=== PATIENT | female | born 1970 | race Caucasian/White ===

== ENCOUNTER 2016-07-30 18:48 | Inpatient (IN) | payer MEDICAID ==
[2016-07-30 19:04] VITALS: BP 139/80
[2016-07-30] MEDS ORDERED: Sodium Chloride 0.9% 1,000 ML IV ONE (19:18)
[2016-07-30] MEDS ORDERED: Morphine Sulfate 4 mg/mL 1mL Syr ONE (19:24)
--- NOTE | 2016-07-30 19:24 | ED Physician Chart ---
Chief Complaint/HPI - Patient Information Date Seen:: 07/30/16 Time Seen:: 19:19 Chief Complaint:: abd p History of Present Illness:: since 6 am today w epigastric pain and vomiting several times through day. last ate chicken last nt ..npo since. took a zofran at 4pm w some relief of nausea...but epigastric pain persists. no known bad food exposure. diarhea 1x nonbloody. no fever. had brief rt side back p earlier not now. no abd sx hx. s/p menopause x 6 mo. is a and not sexually active. no urine changes. no hx of gb dz or gastritis. has a migraine also. its her usual chronic IYER pain. she took a fiorcet last nt for IYER pain. was on abx w bactrim for sinus infection last week. her dad had his GB removed. Allergies:: Allergies Allergy/AdvReac Type Severity Reaction Status Date / Time prochlorperazine AdvReac Verified 07/30/16 19:03 [From Compazine] Vitals:: Vital Signs - 8 hr 07/30/16 07/30/16 19:04 19:07 Temp 100.8 F HR 89 RR 13 BP 139/80 139/80 O2 Sat % 97 Historian:: Patient, Family Member Review of Systems - Review of Systems General/Constitutional: No fever, No chills, No weight loss, No weakness, No diaphoresis, No edema, No loss of appetite Skin: No skin lesions, No rash, No bruising Head: No headache, No light-headedness Eyes: No loss of vision, No pain, No diplopia ENT: No earache, No nasal drainage, No sore throat, No tinnitus Neck: No neck pain, No swelling, No thyromegaly, No stiffness, No mass noted Cardio Vascular: No chest pain, No palpitations, No PND, No orthopnea, No edema Pulmonary: No SOB, No cough, No sputum, No wheezing GI: Nausea, Vomiting, Diarrhea, Pain, No melena, No hematochezia, No constipation, No hematemesis G/U: No dysuria, No frequency, No hematuria Crew Team Member: No abnormal vaginal bleed Musculoskeletal: No bone or joint pain, No back pain, No muscle pain Endocrine: No polyuria, No polydipsia Psychiatric: No prior psych history, No depression, No anxiety, No suicidal ideation Hematopoietic: No bruising, No lymphadenopathy Allergic/Immuno: No urticaria, No angioedema Neurological: No syncope, No focal symptoms, No weakness, No paresthesia, No headache, No seizure, No dizziness, No confusion, No vertigo Past Medical History - Past Medical History Past Medical History: Other (migraine HAs) Family History: Other (gb sx(dad)) Social History: Non Smoker, No Alcohol Medication: Reviewed Family Medical History - Family Member Father Living Status: Still Living Hx Family Cancer: No Hx Family Coronary Artery Disease: No Hx Family Congestive Heart Failure: No Hx Family Diabetes: No Hx Family Seizures: No Hx Family AIDS: No Hx Family COPD: No Hx Family Psychiatric Problems: No Physical Exam - Physical Examination General/Constitutional: Awake, Well-developed, well-nourished, Alert, No distress, GCS 15, Non-toxic appearing, Ambulatory Other Gen/Cons comments:: wn.wh. alert. nontoxic. Head: Atraumatic Eyes: Lids, conjuctiva normal, PERRL, EOMI Skin: Nl inspection, No rash, No skin lesions, No ecchymosis, Well hydrated, No lymphadenopathy ENMT: External ears, nose nl, Nasal exam nl, Lips, teeth, gums nl Neck: Nontender, Full ROM w/o pain, No JVD, No nuchal rigidity, No bruit, No mass, No stridor Respiratory: Nl effort/Exclusion, Clear to Auscultation, No Wheeze/Rhonchi/Rales Cardio Vascular: RRR, No murmur, gallop, rubs, NL S1 S2 GI: No organomegaly, No hernia, Normal BS's, Nondistended, No mass/bruits, No McBurney tenderness Other GI comments:: mild tndr RUQ, ? pos guadarrama sign. no cva tndr no rebound. no abd mass. no aaa. : No CVA tenderness Extremities: No tenderness or effusion, Full ROM, normal strength in all extremities, No edema, Normal digits & nails Neuro/Psych: Alert/oriented, DTR's symmetric, Normal sensory exam, Normal motor strength, Judgement/insight normal, Mood normal, Normal gait, No focal deficits Misc: normal gait, Normal back, No paraspinal tenderness Labs/Radiology/EKG Results - Lab Results Results: Laboratory Tests 07/30/16 07/30/16 07/30/16 19:20 19:20 20:09 WBC 12.2 H RBC 4.71 Hgb 14.4 Hct 41.8 MCV 88.8 MCH 30.5 MCHC Differential 34.4 RDW 12.0 Plt Count 185 MPV 8.5 Neutrophils % 83.5 H Lymphocytes % 11.8 L Monocytes % 4.3 Eosinophils % 0.4 Basophils % 0.0 Sodium 135 L Potassium 3.6 Chloride 104 Carbon Dioxide 24.4 Anion Gap 10.2 BUN 13 Creatinine 0.7 Est GFR ( Amer) > 60.0 Est GFR (Non-Af Amer) > 60.0 BUN/Creatinine Ratio 18.6 Glucose 126 H Whole Bld Lactic Acid 1.20 Calcium 9.9 Total Bilirubin 0.4 AST 20 ALT 27 Alkaline Phosphatase 124 H Total Protein 7.7 Albumin 4.4 Globulin 3.3 Albumin/Globulin Ratio 1.3 Lipase 25 Urine Source Urine Color Urine Clarity Urine pH Ur Specific [place] Urine Protein Urine Glucose (UA) Urine Ketones Urine Blood Urine Nitrate Urine Bilirubin Urine Urobilinogen Ur Leukocyte Esterase Urine RBC Urine WBC Ur Epithelial Cells Urine Bacteria Urine Test 07/30/16 07/30/16 21:10 21:10 WBC RBC Hgb Hct MCV MCH MCHC Differential RDW Plt Count MPV Neutrophils % Lymphocytes % Monocytes % Eosinophils % Basophils % Sodium Potassium Chloride Carbon Dioxide Anion Gap BUN Creatinine Est GFR ( Amer) Est GFR (Non-Af Amer) BUN/Creatinine Ratio Glucose Whole Bld Lactic Acid Calcium Total Bilirubin AST ALT Alkaline Phosphatase Total Protein Albumin Globulin Albumin/Globulin Ratio Lipase Urine Source CLEAN C Urine Color YELLOW Urine Clarity CLEAR Urine pH 6.5 Ur Specific [place] 1.010 Urine Protein NEGATIVE Urine Glucose (UA) NEGATIVE Urine Ketones NEGATIVE Urine Blood NEGATIVE Urine Nitrate NEGATIVE Urine Bilirubin NEGATIVE Urine Urobilinogen 0.2 Ur Leukocyte Esterase NEGATIVE Urine RBC NONE SEEN Urine WBC NONE SEEN Ur Epithelial Cells NONE SEEN Urine Bacteria NONE SEEN Urine Test NEGATIVE - Radiology Results Results: us abd- pos gallstones and wall thick 0.7cm ED Septic Shock - . Is Septic Shock (SBP<90, OR Lactate>4 mmol\L) present?: No - <6hrs of presentation: Vital Signs: Vital Signs - 8 hr 07/30/16 07/30/16 19:04 19:07 Temp 100.8 F HR 89 RR 13 BP 139/80 139/80 O2 Sat % 97 Reassessment (Disposition) - Reassessment Reassessment:: pain persists on /off...additional dose of ms. given case dw dr tripathi (10;15p) he will admit. pt more comfortable now. iv zosyn ordered. Reassessment Condition:: Improved - Diagnosis Diagnosis:: 1 abdominal pain w n/v/d 3 gallstones and thick gb wall c/w acute cholecysteitis - Aftercare/Follow up Instructions Aftercare/Follow-Up Instructions:: Counseled pt & family regarding lab results/ diagnosis & need follow up - Patient Disposition Admitted to:: Med/Surg Condition at Disposition:: Improved
[2016-07-30 19:41] LABS: % MONOCYTES 4.3 % (2.0-10.0)
[2016-07-30 19:43] LABS: % EOSINOPHILS 0.4 % (0.0-5.0); % LYMPHOCYTES 11.8 % (20.0-50.0); % NEUTROPHILS 83.5 % (40.0-80.0); HEMATOCRIT 41.8 % (35.0-45.0); HEMOGLOBIN 14.4 gm/dL (11.7-15.5); MEAN CELL VOLUME 88.8 fl (81-100); MEAN CORPUSCULAR HEMOGLOBIN 30.5 pg (27.0-31.0); MEAN CORPUSCULAR HGB CONC 34.4 pg (28.0-36.0); MEAN PLATELET VOLUME 8.5 fl; NEUTROPHILE ABSOLUTE 10.3 Th/cmm (1.8-8.0); PLATELET COUNT 185 Th/cmm (150-400); RED BLOOD COUNT 4.71 Mil/cmm (3.80-5.10)
[2016-07-30 19:47] LABS: WHITE BLOOD COUNT 12.2 Th/cmm (4.8-10.8)
[2016-07-30 19:51] LABS: ALB/GLOB RATIO 1.3 (1.0-1.8); ALKALINE PHOSPHATASE 124 U/L (34-104); ANION GAP 10.2 (7.0-16.0); BILIRUBIN,TOTAL 0.4 mg/dL (0.3-1.0); BUN - UREA NITROGEN 13 mg/dL (7-25); BUN/CREATININE RATIO 18.6; CALCIUM SERUM 9.9 mg/dL (8.6-10.3); CARBON DIOXIDE 24.4 mEq/L (21.0-31.0); CHLORIDE 104 mEq/L (98-107); CREATININE - SERUM 0.7 mg/dL (0.6-1.2); GLUCOSE 126 mg/dL (70-105); LIPASE 25 U/L (11-82); POTASSIUM SERUM 3.6 mEq/L (3.5-5.1); SGOT 20 U/L (13-39); SGPT/ALT 27 U/L (7-52); SODIUM SERUM 135 mEq/L (136-145)
[2016-07-30 21:36] LABS: URINE BILIRUBIN NEGATIVE (NEGATIVE); URINE BLOOD NEGATIVE (NEGATIVE); URINE COLOR YELLOW; URINE GLUCOSE (UA) NEGATIVE (NEGATIVE); URINE KETONE NEGATIVE (NEGATIVE); URINE PH 6.5; URINE PROTEIN NEGATIVE (NEGATIVE); URINE UROBILINOGEN 0.2 E.U./dL (0.2 - 1.0)
[2016-07-30 21:37] LABS: URINE BACTERIA NONE SEEN /hpf (NONE SEEN); URINE EPITHELIAL CELLS NONE SEEN /lpf (FEW); URINE RBC NONE SEEN /hpf (0-5); URINE WBC NONE SEEN /hpf (0-5)
--- NOTE | 2016-07-30 22:44 | Admit Criteria Form ---
Admit Criteria Forms - Admit Criteria Diagnosis: ABDOMINAL PAIN Clinical Indications for Admission to Inpatient Care (Place 'X' for any and all applicable criteria): Admission is indicated for ANY ONE of the following(1)(2)(3)(4)(5): [X]I. Inpatient admission required rather than observation care (Also use Abdominal Pain: Observation Care, as appropriate) because of ANY ONE of the following: [ ]a) Severe pain requiring acute inpatient management [X]b) Identification of etiology/finding that requires inpatient care (eg, aortic dissection, free air) [ ]c) Absent bowel sounds with complete ileus(6) [ ]d) Suspected toxic megacolon [ ]e) Severe electrolyte abnormalities requiring inpatient care [ ]f) High fever or infection requiring inpatient admission as indicated by ANY ONE of following(7)(8): [ ] i) Appropriate outpatient or observational care antimicrobial treatment unavailable, not effective, or not feasible [ ] ii) Documented bacteremia [ ] iii) Temperature > 104.9 degrees F (oral) [ ] iv) T >103.1 F (oral) or < 96.8 F(rectal) that does not respond to all emergency treatment measures [ ]g) Signs of intestinal obstruction [B] [ ]h) Hemodynamic instability [ ]i) IV fluid to replace significant ongoing losses (greater than 3 L/m2 per day) (12)(13) [ ]j) Percutaneous or open drainage (eg, abscess, biliary tract ) procedures [ ]k) Parenteral nutrition regimen that must be implemented on inpatient basis [ ]l) Other condition,treatment or monitoring requiring inpatient admission. [ ]II. Peritoneal signs present [ ]III. Surgery needed that cannot be performed on an ambulatory basis. [ ]IV. Evaluation requires patient to not eat or drink for extended period ( eg, more than 24 hours). [ ]V. Contraindications and/or Inappropriate clinical situations for Observational Care in patients with abdominal pain, when ANY ONE of the following is required: [ ]a) Thorough evaluation is required to prevent catastrophic events due to delays in diagnosing (e.g.Mesenteric ischemia) 1,3 [ ]b) Patient with severe pathology or with chronic symptoms unlikely to improve in the ED stay (3) [ ]. General contraindications and/or Inappropriate clinical situations for Observational Care in patients with abdominal pain, when ANY ONE of the following is required: [ ]a) Prediction of prolongation of LOS based on ANY ONE of the following may be considered as a contraindication for observational care 2, 3, 4, 5, 6, 7, 8, 9, 10, 11 [ ]i) Age > 65 yrs. [ ]ii) Patient arriving by ambulance [ ]iii) Patient with high acuity [ ]iv) Patient requiring vital sign monitoring [ ]v) Patient on IV medication [ ]b) Systolic blood pressures 180mmHg 3,12 [ ]c) Patient with altered mental status including delirium and other alteration of consciousness, (3) [ ]d) Patient whose discharge disposition will be to a halfway home or rehabilitation home should not be managed in Emergency Department Observation Unit. CMS rule requires 3 days hospital stay before such placement.3,13 [ ]e) Patient with failure to thrive due to broad array of etiologies 3,16,17 [ ]f) Inability to ambulate 3,14 Extended stay beyond goal length of stay may be needed for(2)(3): [ ]a) Persistent abdominal pain with suspected intra-abdominal process [ ]b) Diagnosed condition requiring continued stay (e.g., pancreatitis, complicated diverticulitis) [ ]c) Surgery (e.g., colectomy) The original [facility] content created by [employer] has been revised. The portions of the content which have been revised are identified through the use of italic text or in bold, and [facility] has neither reviewed nor approved the modified material.All other unmodified content is copyright [facility]. Please see references footnoted in the original [facility] edition 2016 Admit Criteria Met?: Yes
[2016-07-30] MEDS ORDERED: Piperacillin Sodium/Tazobact 3.375 gm Vial IV ONE (23:39)
[2016-07-31] MEDS: D5-0.45NS 1,000 ML IV SCH (00:44)
[2016-07-31] MEDS ORDERED: Morphine Sulfate 4 mg/mL 1mL Syr ONE (05:20)
[2016-07-31] MEDS: Morphine Sulfate 4 mg/mL 1mL Syr IVP PRN ×2 (05:27→17:56)
--- NOTE | 2016-07-31 09:27 | Diagnostic Imaging Report ---
Portable chest x-ray History: Cough Allowing for portable technique the heart size is normal. No focal pulmonary parenchymal processes. No hilar or mediastinal abnormalities. Impression: No acute abnormalities.
[2016-07-31 10:16] LABS: % EOSINOPHILS 0.5 % (0.0-5.0); % LYMPHOCYTES 22.2 % (20.0-50.0); % MONOCYTES 5.8 % (2.0-10.0); % NEUTROPHILS 71.5 % (40.0-80.0); HEMOGLOBIN 13.9 gm/dL (11.7-15.5); MEAN CELL VOLUME 90.1 fl (81-100); MEAN CORPUSCULAR HEMOGLOBIN 30.5 pg (27.0-31.0); MEAN CORPUSCULAR HGB CONC 33.9 pg (28.0-36.0); MEAN PLATELET VOLUME 7.9 fl; NEUTROPHILE ABSOLUTE 5.5 Th/cmm (1.8-8.0); PLATELET COUNT 173 Th/cmm (150-400); RED BLOOD COUNT 4.55 Mil/cmm (3.80-5.10); RED CELL DISTRIBUTION WIDTH 12.3 % (11.5-20.0)
[2016-07-31 10:25] LABS: WHITE BLOOD COUNT 7.6 Th/cmm (4.8-10.8)
[2016-07-31 10:39] LABS: ANION GAP 5.7 (7.0-16.0); BUN - UREA NITROGEN 8 mg/dL (7-25); BUN/CREATININE RATIO 11.4; CALCIUM SERUM 9.6 mg/dL (8.6-10.3); CARBON DIOXIDE 27.9 mEq/L (21.0-31.0); CHLORIDE 108 mEq/L (98-107); CREATININE - SERUM 0.7 mg/dL (0.6-1.2); GLUCOSE 119 mg/dL (70-105); POTASSIUM SERUM 3.6 mEq/L (3.5-5.1); SODIUM SERUM 138 mEq/L (136-145)
[2016-07-31 10:53] LABS: INR 0.97 (0.5-1.4); PROTHROMBIN TIME (TEST) 10.1 SECONDS (9.5-11.5)
--- NOTE | 2016-07-31 11:07 | Diagnostic Imaging Report ---
Abdominal ultrasound HISTORY: Pain, vomiting The liver appears generous in size. No focal lesions. The exam the gallbladder demonstrates intraluminal echogenic densities with acoustic shadowing. Findings consistent with cholelithiasis. No biliary dilatation. No abnormalities are seen in the region of the pancreas. No focal renal lesions or hydronephrosis. No other retroperitoneal or intra-abdominal abnormalities. IMPRESSION: 1. Findings consistent with cholelithiasis
[2016-07-31] MEDS ORDERED: Meperidine 50 mg/mL 1mL Syr ONE (12:22)
[2016-07-31] MEDS ORDERED: Midazolam 1mg/ml 2 ml vial IV ONE (12:22)
--- NOTE | 2016-07-31 12:31 | Consultation ---
DATE OF CONSULTATION: 07/31/2016 REFERRING PHYSICIAN: Dr. Hernandez. REASON FOR CONSULTATION: Abdominal pain. Thank you for referring this patient to me. HISTORY OF PRESENT ILLNESS: This is a 46-year-old female who has been having pain in the right upper quadrant and nausea for the last few weeks. Today she complains of severe pain with nausea and multiple vomiting episodes. In the Emergency Room, the patient underwent studies including CBC with slight elevation of WBC at 12,200 with neutrophils of 85%. Liver function test and chemistries are within normal limits except for slightly elevated alkaline phosphatase at 124. She underwent ultrasound of the abdomen, which showed multiple gallstones with no biliary dilatation. PHYSICAL EXAMINATION: The patient is slightly obese, is alert and awake. No previous abdominal surgery. She does have a history of migraines for which she takes medications. Other examination reveals an umbilical hernia. IMPRESSION: 1. Calculus cholecystitis. 2. Umbilical hernia. 3. History of migraines headaches. PLAN: Laparoscopic versus open cholecystectomy and repair of umbilical hernia. Informed consent discussed with the patient and mother regarding possible complications. JOB# [id number]
[2016-07-31] MEDS ORDERED: Neostigmine 10mg/10mL Vial ONE (12:35)
[2016-07-31] MEDS ORDERED: Meperidine 25 mg/mL 1mL Syr IVP PRN (13:09)
[2016-07-31] MEDS ORDERED: Lactated Ringer 1,000 ML IV SCH (13:15)
[2016-07-31] MEDS ORDERED: Meperidine 25 mg/mL 1mL Syr ONE (14:02)
[2016-07-31] MEDS: metroNIDAZOLE 500mg/NS 100mL 500 MG in Premix Fluid 1 BAG IV SCH ×2 (16:23→21:46)
--- NOTE | 2016-07-31 18:18 | Operative Report ---
DATE OF SURGERY: 07/31/2016 PREOPERATIVE DIAGNOSES: 1. Acute calculous cholecystitis. 2. Umbilical hernia. POSTOPERATIVE DIAGNOSIS: 1. Gangrenous cholecystitis. 2. Umbilical hernia. OPERATION DONE: 1. Laparoscopic cholecystectomy. 2. Repair of umbilical hernia. SURGEON: Damion Ramirez M.D. ANESTHESIA: General. ANESTHESIOLOGIST: Casey Reilly M.D. INDICATIONS FOR SURGERY: The patient has sudden onset of abdominal pain, nausea and vomiting. Slight leukocytosis, liver function tests normal. Informed consent discussed with the patient and mother prior to surgery including complications that might include among other things, bleeding, infection, bile leak, adhesions, peritonitis, those related to circulation including DVT and pulmonary embolus and anesthesia. The patient and mother understands. OPERATIVE FINDINGS: Gangrenous Gallbladder. ESTIMATED BLOOD LOSS: 20 mL. DESCRIPTION OF PROCEDURE: The patient was given general anesthesia. The abdomen was prepped with ChloraPrep and draped in appropriate manner. A wide incision was made along the skin line below the umbilicus in preparation for the umbilical hernia repair. A Veress needle was inserted, insufflation of CO2 was carried out successfully. A 10 mm trocar was placed through the incision and the scope was introduced. There was good visualization of the abdominal cavity and a gallbladder was identified to be gangrenous and ____dark in color. Another 10 mm trocar was placed in upper abdomen at the midline and two 5 mm trocars were placed in the right flank. The operating table is elevated at the head and turned to the left side. The gallbladder was then aspirated with the trocar and decompressed. Cultures were taken. Fundus and infundibulum of the gallbladder was grasped and blunt dissection was carried out at the infundibulum easily exposing the cystic duct apparatus, then clipped 3 times distally, once proximally and divided. Cystic artery was next clipped and divided. Cautery dissection was carried out superiorly until the gallbladder was removed in Endobag with multiple gallstones. Following satisfactory hemostasis, Sang-Dyer was left in the ____ space because of the gangrene. The abdominal incision was closed to repair the umbilical hernia utilizing interrupted sutures of #1 Vicryl. This is to approximate the upper and lower part of the fascia. A 0.5% Marcaine was injected into the operative sites and incisions were closed with phyllis. The patient tolerated procedure well. JOB# [id number]
[2016-07-31] MEDS: Morphine Sulfate 2 mg/mL 1mL Syr IVP PRN (23:32)
[2016-08-01] MEDS: APAP 325mg/Butalbital 50mg/Caff 40mg Tab PO PRN ×3 (02:25→20:49)
[2016-08-01] MEDS: Morphine Sulfate 2 mg/mL 1mL Syr IVP PRN ×2 (02:45→11:09)
[2016-08-01] MEDS: metroNIDAZOLE 500mg/NS 100mL 500 MG in Premix Fluid 1 BAG IV SCH ×3 (05:21→23:09)
[2016-08-01 06:39] LABS: % EOSINOPHILS 0.4 % (0.0-5.0); % LYMPHOCYTES 25.2 % (20.0-50.0); % MONOCYTES 8.2 % (2.0-10.0); % NEUTROPHILS 66.2 % (40.0-80.0); HEMOGLOBIN 12.2 gm/dL (11.7-15.5); MEAN CELL VOLUME 90.6 fl (81-100); MEAN CORPUSCULAR HEMOGLOBIN 31.5 pg (27.0-31.0); MEAN CORPUSCULAR HGB CONC 34.7 pg (28.0-36.0); MEAN PLATELET VOLUME 8.4 fl; NEUTROPHILE ABSOLUTE 4.8 Th/cmm (1.8-8.0); RED BLOOD COUNT 3.88 Mil/cmm (3.80-5.10); RED CELL DISTRIBUTION WIDTH 12.4 % (11.5-20.0); WHITE BLOOD COUNT 7.2 Th/cmm (4.8-10.8)
[2016-08-01 06:54] LABS: ALB/GLOB RATIO 1.3 (1.0-1.8); ALKALINE PHOSPHATASE 141 U/L (34-104); BUN - UREA NITROGEN 6 mg/dL (7-25); CARBON DIOXIDE 27.2 mEq/L (21.0-31.0); CHLORIDE 108 mEq/L (98-107); CREATININE - SERUM 0.6 mg/dL (0.6-1.2); GLUCOSE 108 mg/dL (70-105); POTASSIUM SERUM 3.2 mEq/L (3.5-5.1); SGOT 225 U/L (13-39); SGPT/ALT 352 U/L (7-52); SODIUM SERUM 137 mEq/L (136-145)
[2016-08-01 07:00] LABS: HEMATOCRIT 35.2 % (35.0-45.0); PLATELET COUNT 135 Th/cmm (150-400)
--- NOTE | 2016-08-01 09:52 | General Progress Note ---
Subjective - Review of Systems Service Date: 08/01/16 Events since last encounter: 08/01/16 afebrile LAURA drainage 200 cc labs ok await C and S Objective - Results Result Diagrams: 08/01/16 06:10 08/01/16 06:10 Recent Labs: Laboratory Last Values WBC 7.2 Th/cmm (4.8-10.8) 08/01/16 06:10 RBC 3.88 Mil/cmm (3.80-5.10) 08/01/16 06:10 Hgb 12.2 gm/dL (11.7-15.5) 08/01/16 06:10 Hct 35.2 % (35.0-45.0) D 08/01/16 06:10 MCV 90.6 fl (81-100) 08/01/16 06:10 MCH 31.5 pg (27.0-31.0) H 08/01/16 06:10 MCHC Differential 34.7 pg (28.0-36.0) 08/01/16 06:10 RDW 12.4 % (11.5-20.0) 08/01/16 06:10 Plt Count 135 Th/cmm (150-400) L D 08/01/16 06:10 MPV 8.4 fl 08/01/16 06:10 Neutrophils % 66.2 % (40.0-80.0) 08/01/16 06:10 Lymphocytes % 25.2 % (20.0-50.0) 08/01/16 06:10 Monocytes % 8.2 % (2.0-10.0) 08/01/16 06:10 Eosinophils % 0.4 % (0.0-5.0) 08/01/16 06:10 Basophils % 0.0 % (0.0-2.0) 08/01/16 06:10 PT 10.1 SECONDS (9.5-11.5) 07/31/16 10:10 INR 0.97 (0.5-1.4) 07/31/16 10:10 Sodium 137 mEq/L (136-145) 08/01/16 06:10 Potassium 3.2 mEq/L (3.5-5.1) L 08/01/16 06:10 Chloride 108 mEq/L (98-107) H 08/01/16 06:10 Carbon Dioxide 27.2 mEq/L (21.0-31.0) 08/01/16 06:10 Anion Gap 5.0 (7.0-16.0) L 08/01/16 06:10 BUN 6 mg/dL (7-25) L 08/01/16 06:10 Creatinine 0.6 mg/dL (0.6-1.2) 08/01/16 06:10 Est GFR ( Amer) > 60.0 ml/min (>90) 08/01/16 06:10 Est GFR (Non-Af Amer) > 60.0 ml/min 08/01/16 06:10 BUN/Creatinine Ratio 10.0 08/01/16 06:10 Glucose 108 mg/dL (70-105) H 08/01/16 06:10 Whole Bld Lactic Acid 1.20 mmol/L (0.60-1.99) 07/30/16 20:09 Calcium 9.0 mg/dL (8.6-10.3) 08/01/16 06:10 Total Bilirubin 1.0 mg/dL (0.3-1.0) 08/01/16 06:10 AST 225 U/L (13-39) H 08/01/16 06:10 ALT 352 U/L (7-52) H 08/01/16 06:10 Alkaline Phosphatase 141 U/L (34-104) H 08/01/16 06:10 Total Protein 6.3 gm/dL (6.0-8.3) 08/01/16 06:10 Albumin 3.5 gm/dL (3.7-5.3) L 08/01/16 06:10 Globulin 2.8 gm/dL 08/01/16 06:10 Albumin/Globulin Ratio 1.3 (1.0-1.8) 08/01/16 06:10 Lipase 25 U/L (11-82) 07/30/16 19:20 Urine Source CLEAN C 07/30/16 21:10 Urine Color YELLOW 07/30/16 21:10 Urine Clarity CLEAR (CLEAR) 07/30/16 21:10 Urine pH 6.5 07/30/16 21:10 Ur Specific [place] 1.010 (1.005-1.030) 07/30/16 21:10 Urine Protein NEGATIVE mg/dL (NEGATIVE) 07/30/16 21:10 Urine Glucose (UA) NEGATIVE mg/dL (NEGATIVE) 07/30/16 21:10 Urine Ketones NEGATIVE mg/dL (NEGATIVE) 07/30/16 21:10 Urine Blood NEGATIVE (NEGATIVE) 07/30/16 21:10 Urine Nitrate NEGATIVE (NEGATIVE) 07/30/16 21:10 Urine Bilirubin NEGATIVE (NEGATIVE) 07/30/16 21:10 Urine Urobilinogen 0.2 E.U./dL (0.2 - 1.0) 07/30/16 21:10 Ur Leukocyte Esterase NEGATIVE (NEGATIVE) 07/30/16 21:10 Urine RBC NONE SEEN /hpf (0-5) 07/30/16 21:10 Urine WBC NONE SEEN /hpf (0-5) 07/30/16 21:10 Ur Epithelial Cells NONE SEEN /lpf (FEW) 07/30/16 21:10 Urine Bacteria NONE SEEN /hpf (NONE SEEN) 07/30/16 21:10 Urine Test NEGATIVE 07/31/16 08:00 - Physical Exam Vitals and I&O: Vital Signs Temp 97.5 F 08/01/16 08:27 Pulse 69 08/01/16 08:27 Resp 19 08/01/16 08:27 BP 115/77 08/01/16 08:27 Pulse Ox 97 08/01/16 08:27 Intake & Output 07/31/16 08/01/16 08/01/16 18:59 06:59 18:59 Intake Total 100 100 100 Output Total 115 Balance 100 100 -15 Intake: Intake, IV Amount 100 100 metroNIDAZOLE 500mg/NS 100 100 100mL 500 mg In Premix Fluid 1 bag @ 100 mls/hr IV Q8H [facility] Rx#:[id number] Oral 100 Output: Other 115 Other: # Voids 2 # Bowel Movements 0 Active Medications: Current Medications Acetaminophen/Butalbital/Caffeine (Fioricet) 1 tab PO Q4HR PRN PRN Reason: Migraines Stop: 09/29/16 17:55 Last Admin: 08/01/16 02:25 Dose: 1 tab Dextrose/Sodium Chloride (D5-0.45ns) 1,000 mls @ 80 mls/hr IV .[id number] [facility] Stop: 09/28/16 22:15 Last Admin: 07/31/16 00:44 Dose: 80 mls/hr Lactated Ringer's (Lactated Ringer) 1,000 mls @ 0 mls/hr IV .Q0M BACILIO PRN Reason: TKO Stop: 08/01/16 13:14 Metronidazole 500 mg/ (Miscellaneous) 100 mls @ 100 mls/hr IV Q8H [facility] Stop: 09/29/16 13:44 Last Admin: 08/01/16 05:21 Dose: 100 mls/hr Ceftriaxone Sodium 2 gm/ (Dextrose) 100 mls @ 100 mls/hr IV Q24H [facility] Stop: 09/29/16 13:44 Last Admin: 07/31/16 15:18 Dose: 100 mls/hr Meperidine HCl (Demerol) 12.5 mg IVP UD PRN PRN Reason: POST-OP PAIN Stop: 08/01/16 13:08 Morphine Sulfate (Morphine) 2 mg IVP Q3HR PRN PRN Reason: Pain (Moderate) Stop: 09/29/16 22:45 Last Admin: 08/01/16 02:45 Dose: 2 mg Ondansetron HCl (Zofran) 4 mg IV Q6H PRN PRN Reason: Nausea Stop: 09/28/16 22:14 Last Admin: 07/31/16 23:32 Dose: 4 mg
[2016-08-01] MEDS: D5-0.45NS 1,000 ML IV SCH (14:48)
[2016-08-01] MEDS ORDERED: Lactulose 10 Gm/15 mL 30mL UDC PO PRN ×2 (17:49→18:06)
--- NOTE | 2016-08-01 18:07 | General Progress Note ---
Subjective - Review of Systems Service Date: 08/01/16 Subjective: Patient feels better started ambulating passing gas no BM yet tolerating diet ok Objective - Results Result Diagrams: 08/01/16 06:10 08/01/16 06:10 Recent Labs: Laboratory Last Values WBC 7.2 Th/cmm (4.8-10.8) 08/01/16 06:10 RBC 3.88 Mil/cmm (3.80-5.10) 08/01/16 06:10 Hgb 12.2 gm/dL (11.7-15.5) 08/01/16 06:10 Hct 35.2 % (35.0-45.0) D 08/01/16 06:10 MCV 90.6 fl (81-100) 08/01/16 06:10 MCH 31.5 pg (27.0-31.0) H 08/01/16 06:10 MCHC Differential 34.7 pg (28.0-36.0) 08/01/16 06:10 RDW 12.4 % (11.5-20.0) 08/01/16 06:10 Plt Count 135 Th/cmm (150-400) L D 08/01/16 06:10 MPV 8.4 fl 08/01/16 06:10 Neutrophils % 66.2 % (40.0-80.0) 08/01/16 06:10 Lymphocytes % 25.2 % (20.0-50.0) 08/01/16 06:10 Monocytes % 8.2 % (2.0-10.0) 08/01/16 06:10 Eosinophils % 0.4 % (0.0-5.0) 08/01/16 06:10 Basophils % 0.0 % (0.0-2.0) 08/01/16 06:10 PT 10.1 SECONDS (9.5-11.5) 07/31/16 10:10 INR 0.97 (0.5-1.4) 07/31/16 10:10 Sodium 137 mEq/L (136-145) 08/01/16 06:10 Potassium 3.2 mEq/L (3.5-5.1) L 08/01/16 06:10 Chloride 108 mEq/L (98-107) H 08/01/16 06:10 Carbon Dioxide 27.2 mEq/L (21.0-31.0) 08/01/16 06:10 Anion Gap 5.0 (7.0-16.0) L 08/01/16 06:10 BUN 6 mg/dL (7-25) L 08/01/16 06:10 Creatinine 0.6 mg/dL (0.6-1.2) 08/01/16 06:10 Est GFR ( Amer) > 60.0 ml/min (>90) 08/01/16 06:10 Est GFR (Non-Af Amer) > 60.0 ml/min 08/01/16 06:10 BUN/Creatinine Ratio 10.0 08/01/16 06:10 Glucose 108 mg/dL (70-105) H 08/01/16 06:10 Whole Bld Lactic Acid 1.20 mmol/L (0.60-1.99) 07/30/16 20:09 Calcium 9.0 mg/dL (8.6-10.3) 08/01/16 06:10 Total Bilirubin 1.0 mg/dL (0.3-1.0) 08/01/16 06:10 AST 225 U/L (13-39) H 08/01/16 06:10 ALT 352 U/L (7-52) H 08/01/16 06:10 Alkaline Phosphatase 141 U/L (34-104) H 08/01/16 06:10 Total Protein 6.3 gm/dL (6.0-8.3) 08/01/16 06:10 Albumin 3.5 gm/dL (3.7-5.3) L 08/01/16 06:10 Globulin 2.8 gm/dL 08/01/16 06:10 Albumin/Globulin Ratio 1.3 (1.0-1.8) 08/01/16 06:10 Lipase 25 U/L (11-82) 07/30/16 19:20 Urine Source CLEAN C 07/30/16 21:10 Urine Color YELLOW 07/30/16 21:10 Urine Clarity CLEAR (CLEAR) 07/30/16 21:10 Urine pH 6.5 07/30/16 21:10 Ur Specific [place] 1.010 (1.005-1.030) 07/30/16 21:10 Urine Protein NEGATIVE mg/dL (NEGATIVE) 07/30/16 21:10 Urine Glucose (UA) NEGATIVE mg/dL (NEGATIVE) 07/30/16 21:10 Urine Ketones NEGATIVE mg/dL (NEGATIVE) 07/30/16 21:10 Urine Blood NEGATIVE (NEGATIVE) 07/30/16 21:10 Urine Nitrate NEGATIVE (NEGATIVE) 07/30/16 21:10 Urine Bilirubin NEGATIVE (NEGATIVE) 07/30/16 21:10 Urine Urobilinogen 0.2 E.U./dL (0.2 - 1.0) 07/30/16 21:10 Ur Leukocyte Esterase NEGATIVE (NEGATIVE) 07/30/16 21:10 Urine RBC NONE SEEN /hpf (0-5) 07/30/16 21:10 Urine WBC NONE SEEN /hpf (0-5) 07/30/16 21:10 Ur Epithelial Cells NONE SEEN /lpf (FEW) 07/30/16 21:10 Urine Bacteria NONE SEEN /hpf (NONE SEEN) 07/30/16 21:10 Urine Test NEGATIVE 07/31/16 08:00 - Physical Exam Vitals and I&O: Vital Signs Temp 98.1 F 08/01/16 15:33 Pulse 81 08/01/16 15:33 Resp 16 08/01/16 15:33 BP 123/70 08/01/16 15:33 Pulse Ox 98 08/01/16 15:33 Intake & Output 07/31/16 08/01/16 08/01/16 18:59 06:59 18:59 Intake Total 1200 200 100 Output Total 115 Balance 1200 200 -15 Intake: Intake, IV Amount 1200 200 D5-0.45NS 1,000 ml @ 80 1000 mls/hr IV .[id number] [facility] Rx #:[id number] cefTRIAXone 2 gm In 100 Dextrose 5% 100 ml @ 100 mls/hr IV Q24H [facility] Rx#: [id number] metroNIDAZOLE 500mg/NS 100 200 100mL 500 mg In Premix Fluid 1 bag @ 100 mls/hr IV Q8H [facility] Rx#:[id number] Oral 100 Output: Other 115 Other: # Voids 2 # Bowel Movements 0 Active Medications: Current Medications Acetaminophen/Butalbital/Caffeine (Fioricet) 1 tab PO Q4HR PRN PRN Reason: Migraines Stop: 09/29/16 17:55 Last Admin: 08/01/16 11:02 Dose: 1 tab Dextrose/Sodium Chloride (D5-0.45ns) 1,000 mls @ 80 mls/hr IV .[id number] [facility] Stop: 09/28/16 22:15 Last Admin: 08/01/16 14:48 Dose: 80 mls/hr Metronidazole 500 mg/ (Miscellaneous) 100 mls @ 100 mls/hr IV Q8H [facility] Stop: 09/29/16 13:44 Last Admin: 08/01/16 13:00 Dose: 100 mls/hr Ceftriaxone Sodium 2 gm/ (Dextrose) 100 mls @ 100 mls/hr IV Q24H [facility] Stop: 09/29/16 13:44 Last Admin: 08/01/16 14:47 Dose: 100 mls/hr Lactulose (Cephulac) 30 gm PO BID PRN PRN Reason: Constipation Stop: 09/30/16 17:59 Morphine Sulfate (Morphine) 2 mg IVP Q3HR PRN PRN Reason: Pain (Moderate) Stop: 09/29/16 22:45 Last Admin: 08/01/16 11:09 Dose: 2 mg Ondansetron HCl (Zofran) 4 mg IV Q6H PRN PRN Reason: Nausea Stop: 09/28/16 22:14 Last Admin: 08/01/16 11:09 Dose: 4 mg Simethicone (Mylicon) 80 mg PO Q6H PRN PRN Reason: Gas Stop: 09/30/16 11:23 Last Admin: 08/01/16 12:06 Dose: 80 mg Cardiovascular: Regular rate Lungs: Clear to auscultation Abdomen: Soft, no Tender - Procedures Procedures: Procedures Procedure Code Date LAPAROSCOPIC CHOLECYSTECTOMY 98537 07/30/16 REPAIR ABDOMINAL WALL, OPEN APPROACH [id number] 07/30/16 RESECTION OF GALLBLADDER, PERCUTANEOUS ENDOSCOPIC APPROACH [id number] 07/30/16 RPR VENTRAL CORBIN INIT REDUC 47675 07/30/16 Assessment/Plan - Assessment Assessment: Acute calculous cholecystitis Gangreneous cholecystitis s/p Lap cholecystectomy - Plan Plan: Advance diet as tolerated Morphine and Zofran as needed Continue Rocephine and Flagyl Follow final culture Plan of care discussed with patient and nursing staff
--- NOTE | 2016-08-01 19:36 | Consultation ---
DATE OF CONSULTATION: 07/31/2016 REASON FOR CONSULTATION: Abdominal pain and cholelithiasis. HISTORY OF PRESENT ILLNESS: This consult was obtained through the courtesy of Dr. Hernandez for this 46-year-old with history of obesity and migraine headache presenting with abdominal pain, nausea and vomiting, found to have cholelithiasis. GI consult was called in for further evaluation. The patient denies any hematemesis, melena or hematochezia. PAST MEDICAL HISTORY: Migraine. PAST SURGICAL HISTORY: She has had too many surgeries. She had head surgery for the migraine. SOCIAL HISTORY: Nonsmoker, nonalcoholic and no IV drug abuser. FAMILY HISTORY: Noncontributory. ALLERGIES: PROCHLORPERAZINE. MEDICATIONS: Rocephin, lactated Ringer, Demerol, Flagyl, morphine and Zofran. REVIEW OF SYSTEMS: No GI bleed. She had no fever. She had nausea and vomiting. PHYSICAL EXAMINATION: GENERAL: The patient is awake and oriented to self and place, status post surgery. She is in moderate distress. VITAL SIGNS: Blood pressure is 142/75, heart rate 65, respiratory rate 17 and temperature is 98.7. HEAD AND NECK: Pupils reactive to light. Extraocular muscles are intact. Sclerae are anicteric. Conjunctivae not pale. Oral cavity: No lesion. NECK: Supple. No jugular venous distention and no carotid bruit or lymph node. CHEST: Good respiratory movements. LUNGS: Clear to auscultation. CARDIOVASCULAR SYSTEM: Regular rate and rhythm. No murmur or gallop. ABDOMEN: Soft. Positive bowel sounds with surgical dressings. Bowel sounds are present. EXTREMITIES: Lower extremities, no edema. CENTRAL NERVOUS SYSTEM: Nonfocal. LABORATORY DATA: CBC unremarkable. PT is normal. Chemistry showed normal AST and ALT, but alkaline phosphatase is slightly elevated. Ultrasound showed cholelithiasis. IMPRESSION: This is a 46-year-old with cholecystitis. ASSESSMENT AND PLAN: Cholecystitis, The patient already had surgery. At this time, there is no need for an endoscopic retrograde cholangiopancreatography and no indication for it. We will watch for postoperative complications, especially if gallbladder was gangrenous, such as bile leak, etc. Will recheck labs in the morning and diet per surgery. Thank you, Dr. Hernandez for allowing me to participate in the care of the patient. If you have any further questions, please let me know. JOB# [id number] MTDD
--- NOTE | 2016-08-01 19:44 | History & Physical ---
ADMIT DATE: 07/31/2016 CHIEF COMPLAINT: Abdominal pain. HISTORY OF PRESENT ILLNESS: This is a 46-year-old female who was admitted for evaluation of severe abdominal pain, also with nausea and vomiting. The patient while in Emergency Room diagnosed with acute cholecystitis and subsequently admitted to the hospital for further eval and treatment. At the time of evaluation, the patient was status post laparoscopic cholecystectomy. The patient still was complaining of nausea and some abdominal discomfort and pain around the off site____. Denies any fever, no chills or other complaints. PAST MEDICAL HISTORY: Migraine headache. PAST SURGICAL HISTORY: No significant past surgical reported. SOCIAL HISTORY: Lives at home. Denies any alcohol, tobacco, or street drug use. CURRENT MEDICATIONS: Medication reconciliation is reviewed. ALLERGIES: ALLERGIC TO PROCHLORPERAZINE. REVIEW OF SYSTEMS: Positive for nausea and postoperative abdominal pain, no fever, no chills, no headache, no chest pain, no shortness of breath, dizziness or palpitations reported. PHYSICAL EXAMINATION: VITAL SIGNS: Temperature 98.3, pulse 72, respirations 20, blood pressure 123/70, oxygen saturation 98% on room air. Pain 4/10. GENERAL APPEARANCE: The patient does not seem in acute distress. HEART: S1, S2 normal. LUNGS: Clear to auscultation. ABDOMEN: Soft, nontender, nondistended. NEUROLOGIC: The patient is alert, awake. Moves all extremities. No focal deficits. EXTREMITIES: Negative for edema. No calf tenderness. AVAILABLE LABORATORY DATA: Has been reviewed. ASSESSMENT: 1. Acute calculus cholecystitis status post laparoscopic cholecystectomy. 2. Umbilical hernia. 3. Gangrenous cholecystitis. 4. Migraine headache, stable. PLAN: Postoperative care and management per Dr. Ramirez. The patient will be given a morphine and Zofran for symptomatic treatment, Rocephin, Flagyl will be started. We will follow up on the cultures. IV fluid has been given. Diet for surgery recommendations. Discussed with the patient regarding plan of care per her nursing staff. JOB# [id number]
[2016-08-02] MEDS: APAP 325mg/Butalbital 50mg/Caff 40mg Tab PO PRN (02:19)
[2016-08-02 05:56] LABS: % BASOPHILS 0.2 % (0.0-2.0); % EOSINOPHILS 2.3 % (0.0-5.0); % LYMPHOCYTES 33.8 % (20.0-50.0); % MONOCYTES 7.9 % (2.0-10.0); % NEUTROPHILS 55.8 % (40.0-80.0); HEMATOCRIT 35.6 % (35.0-45.0); HEMOGLOBIN 12.1 gm/dL (11.7-15.5); MEAN CELL VOLUME 90.8 fl (81-100); MEAN CORPUSCULAR HEMOGLOBIN 30.8 pg (27.0-31.0); MEAN CORPUSCULAR HGB CONC 33.9 pg (28.0-36.0); MEAN PLATELET VOLUME 8.5 fl; NEUTROPHILE ABSOLUTE 3.3 Th/cmm (1.8-8.0); PLATELET COUNT 139 Th/cmm (150-400); RED BLOOD COUNT 3.92 Mil/cmm (3.80-5.10); RED CELL DISTRIBUTION WIDTH 12.2 % (11.5-20.0); WHITE BLOOD COUNT 5.9 Th/cmm (4.8-10.8)
[2016-08-02 06:20] LABS: ALB/GLOB RATIO 1.3 (1.0-1.8); ALKALINE PHOSPHATASE 134 U/L (34-104); BILIRUBIN,TOTAL 0.4 mg/dL (0.3-1.0); BUN - UREA NITROGEN 5 mg/dL (7-25); BUN/CREATININE RATIO 8.3; CHLORIDE 109 mEq/L (98-107); CREATININE - SERUM 0.6 mg/dL (0.6-1.2); GLUCOSE 112 mg/dL (70-105); SGOT 67 U/L (13-39); SGPT/ALT 221 U/L (7-52); SODIUM SERUM 139 mEq/L (136-145)
[2016-08-02] MEDS: D5-0.45NS 1,000 ML IV SCH (09:13)
--- NOTE | 2016-08-02 09:53 | General Progress Note ---
Subjective - Review of Systems Service Date: 08/02/16 Events since last encounter: labs noted LAURA removed may DC on low fat diet to my office 08/07/16 Objective - Results Result Diagrams: 08/02/16 05:26 08/02/16 05:26 Recent Labs: Laboratory Last Values WBC 5.9 Th/cmm (4.8-10.8) 08/02/16 05:26 RBC 3.92 Mil/cmm (3.80-5.10) 08/02/16 05:26 Hgb 12.1 gm/dL (11.7-15.5) 08/02/16 05:26 Hct 35.6 % (35.0-45.0) 08/02/16 05:26 MCV 90.8 fl (81-100) 08/02/16 05:26 MCH 30.8 pg (27.0-31.0) 08/02/16 05:26 MCHC Differential 33.9 pg (28.0-36.0) 08/02/16 05:26 RDW 12.2 % (11.5-20.0) 08/02/16 05:26 Plt Count 139 Th/cmm (150-400) L 08/02/16 05:26 MPV 8.5 fl 08/02/16 05:26 Neutrophils % 55.8 % (40.0-80.0) 08/02/16 05:26 Lymphocytes % 33.8 % (20.0-50.0) 08/02/16 05:26 Monocytes % 7.9 % (2.0-10.0) 08/02/16 05:26 Eosinophils % 2.3 % (0.0-5.0) 08/02/16 05:26 Basophils % 0.2 % (0.0-2.0) 08/02/16 05:26 PT 10.1 SECONDS (9.5-11.5) 07/31/16 10:10 INR 0.97 (0.5-1.4) 07/31/16 10:10 Sodium 139 mEq/L (136-145) 08/02/16 05:26 Potassium 3.0 mEq/L (3.5-5.1) L 08/02/16 05:26 Chloride 109 mEq/L (98-107) H 08/02/16 05:26 Carbon Dioxide 26.0 mEq/L (21.0-31.0) 08/02/16 05:26 Anion Gap 7.0 (7.0-16.0) 08/02/16 05:26 BUN 5 mg/dL (7-25) L 08/02/16 05:26 Creatinine 0.6 mg/dL (0.6-1.2) 08/02/16 05:26 Est GFR ( Amer) > 60.0 ml/min (>90) 08/02/16 05:26 Est GFR (Non-Af Amer) > 60.0 ml/min 08/02/16 05:26 BUN/Creatinine Ratio 8.3 08/02/16 05:26 Glucose 112 mg/dL (70-105) H 08/02/16 05:26 Whole Bld Lactic Acid 1.20 mmol/L (0.60-1.99) 07/30/16 20:09 Calcium 9.0 mg/dL (8.6-10.3) 08/02/16 05:26 Total Bilirubin 0.4 mg/dL (0.3-1.0) 08/02/16 05:26 AST 67 U/L (13-39) H 08/02/16 05:26 ALT 221 U/L (7-52) H 08/02/16 05:26 Alkaline Phosphatase 134 U/L (34-104) H 08/02/16 05:26 Total Protein 6.3 gm/dL (6.0-8.3) 08/02/16 05:26 Albumin 3.5 gm/dL (3.7-5.3) L 08/02/16 05:26 Globulin 2.8 gm/dL 08/02/16 05:26 Albumin/Globulin Ratio 1.3 (1.0-1.8) 08/02/16 05:26 Lipase 39 U/L (11-82) 08/02/16 05:26 Urine Source CLEAN C 07/30/16 21:10 Urine Color YELLOW 07/30/16 21:10 Urine Clarity CLEAR (CLEAR) 07/30/16 21:10 Urine pH 6.5 07/30/16 21:10 Ur Specific [place] 1.010 (1.005-1.030) 07/30/16 21:10 Urine Protein NEGATIVE mg/dL (NEGATIVE) 07/30/16 21:10 Urine Glucose (UA) NEGATIVE mg/dL (NEGATIVE) 07/30/16 21:10 Urine Ketones NEGATIVE mg/dL (NEGATIVE) 07/30/16 21:10 Urine Blood NEGATIVE (NEGATIVE) 07/30/16 21:10 Urine Nitrate NEGATIVE (NEGATIVE) 07/30/16 21:10 Urine Bilirubin NEGATIVE (NEGATIVE) 07/30/16 21:10 Urine Urobilinogen 0.2 E.U./dL (0.2 - 1.0) 07/30/16 21:10 Ur Leukocyte Esterase NEGATIVE (NEGATIVE) 07/30/16 21:10 Urine RBC NONE SEEN /hpf (0-5) 07/30/16 21:10 Urine WBC NONE SEEN /hpf (0-5) 07/30/16 21:10 Ur Epithelial Cells NONE SEEN /lpf (FEW) 07/30/16 21:10 Urine Bacteria NONE SEEN /hpf (NONE SEEN) 07/30/16 21:10 Urine Test NEGATIVE 07/31/16 08:00 - Physical Exam Vitals and I&O: Vital Signs Temp 99.0 F 08/01/16 23:00 Pulse 75 08/01/16 23:00 Resp 19 08/01/16 23:00 BP 121/77 08/01/16 23:00 Pulse Ox 98 08/01/16 15:33 Intake & Output 08/01/16 08/02/16 08/02/16 18:59 06:59 18:59 Intake Total 300 1000 Output Total 115 Balance 185 1000 Intake: Intake, IV Amount 200 1000 D5-0.45NS 1,000 ml @ 80 1000 mls/hr IV .[id number] [facility] Rx #:[id number] cefTRIAXone 2 gm In 100 Dextrose 5% 100 ml @ 100 mls/hr IV Q24H [facility] Rx#: [id number] metroNIDAZOLE 500mg/NS 100 100mL 500 mg In Premix Fluid 1 bag @ 100 mls/hr IV Q8H [facility] Rx#:[id number] Oral 100 Output: Other 115 Other: # Voids 2 # Bowel Movements 0 Active Medications: Current Medications Acetaminophen/Butalbital/Caffeine (Fioricet) 1 tab PO Q4HR PRN PRN Reason: Migraines Stop: 09/29/16 17:55 Last Admin: 08/02/16 02:19 Dose: 1 tab Dextrose/Sodium Chloride (D5-0.45ns) 1,000 mls @ 80 mls/hr IV .[id number] [facility] Stop: 09/28/16 22:15 Last Admin: 08/02/16 09:13 Dose: 80 mls/hr Metronidazole 500 mg/ (Miscellaneous) 100 mls @ 100 mls/hr IV Q8H [facility] Stop: 09/29/16 13:44 Last Admin: 08/01/16 23:09 Dose: 100 mls/hr Ceftriaxone Sodium 2 gm/ (Dextrose) 100 mls @ 100 mls/hr IV Q24H [facility] Stop: 09/29/16 13:44 Last Infusion: 08/01/16 15:45 Dose: Infused Lactulose (Cephulac) 20 gm PO BID PRN PRN Reason: Constipation Stop: 09/30/16 17:59 Last Admin: 08/01/16 18:28 Dose: 20 gm Morphine Sulfate (Morphine) 2 mg IVP Q3HR PRN PRN Reason: Pain (Moderate) Stop: 09/29/16 22:45 Last Admin: 08/01/16 11:09 Dose: 2 mg Ondansetron HCl (Zofran) 4 mg IV Q6H PRN PRN Reason: Nausea Stop: 09/28/16 22:14 Last Admin: 08/01/16 11:09 Dose: 4 mg Simethicone (Mylicon) 80 mg PO Q6H PRN PRN Reason: Gas Stop: 09/30/16 11:23 Last Admin: 08/01/16 12:06 Dose: 80 mg - Procedures Procedures: Procedures Procedure Code Date LAPAROSCOPIC CHOLECYSTECTOMY 51896 07/30/16 REPAIR ABDOMINAL WALL, OPEN APPROACH [id number] 07/30/16 RESECTION OF GALLBLADDER, PERCUTANEOUS ENDOSCOPIC APPROACH [id number] 07/30/16 RPR VENTRAL CORBIN INIT REDUC 58895 07/30/16
[2016-08-02] MEDS ORDERED: Potassium Chloride 20 mEq ER Tab PO ONE (12:12)
[2016-08-02] MEDS: metroNIDAZOLE 500mg/NS 100mL 500 MG in Premix Fluid 1 BAG IV SCH (12:48)
--- NOTE | 2016-08-02 13:57 | Discharge Progress Note ---
Discharge Progress Notes Is this patient being discharged home?: Yes Admitting Diagnoses: Diagnoses UMBILICAL HERNIA WITHOUT OBSTRUCTION OR GANGRENE 07/30/16 CALCULUS OF GALLBLADDER W ACUTE CHOLECYST W/O OBSTRUCTION 07/30/16 Discharge Diagnoses: 1. abd pain. 2. Acute gangrenous cholecystitis. Disposition: PT DISCHARGED HOME Procedures Performed: 07/30/16 23:31 Additional Notes for Nursing ONCE 07/30/16 23:39 Piperacillin Sodium/Tazobact [Zosyn] 3.375 gm IV .STK-MED ONE 07/31/16 05:20 Morphine Sulfate [Morphine] 4 mg .ROUTE .STK-MED ONE 07/31/16 08:00 TEST URINE Routine 07/31/16 08:09 CHEST, 1 VIEW [RAD] Routine 07/31/16 08:18 EKG-ELECTROCARDIOGRAM Routine 07/31/16 09:44 Obtain consent for procedure ONCE 07/31/16 10:10 BMP (BASIC METABOLIC) Routine CBC /W AUTO DIFF Routine PT [PROTIME WITH INR] Routine 07/31/16 12:22 Meperidine [Demerol] 50 mg .ROUTE .STK-MED ONE Midazolam [Versed] 2 mg IV .STK-MED ONE 07/31/16 12:35 Glycopyrrolate [Robinul] 0.2 mg IVP .STK-MED ONE Neostigmine [Prostigmin] 10 mg .ROUTE .STK-MED ONE Propofol [Diprivan] 20 ml IV .STK-MED Rocuronium [place] [Zemuron] 100 mg IVP .STK-MED ONE 07/31/16 12:36 Glycopyrrolate [Robinul] 0.2 mg IVP .STK-MED ONE ceFAZolin [Ancef] 1 gm .ROUTE .STK-MED ONE ceFAZolin [Ancef] 1 gm .ROUTE .STK-MED ONE 07/31/16 13:09 Additional Notes for Nursing ONCE Data Processing Auditor(Recovery only) ONCE Oxygen Simple Mask 5 lpm Pulse Oximetry (Recovery only) ONCE Vital Signs (Recovery only) Q15M Meperidine [Demerol] 12.5 mg IVP UD PRN Ondansetron HCl [Zofran] 4 mg IV X1 ONE 07/31/16 13:15 Lactated Ringer 1,000 ml IV TKO 07/31/16 13:45 cefTRIAXone [Rocephin] 2 gm Dextrose 5% [D5w] 100 ml IV Q24H metroNIDAZOLE 500mg/NS 100mL [Flagyl] 500 mg Premix Fluid 1 bag IV Q8H 07/31/16 14:02 Meperidine [Demerol] 25 mg .ROUTE .STK-MED ONE 07/31/16 17:56 Acetaminophen/Butalbital/Caff [Fioricet] 1 tab PO Q4HR PRN 07/31/16 22:46 Morphine Sulfate [Morphine] 2 mg IVP Q3HR PRN 07/31/16 Dinner CLEAR LIQUID [DIET] 08/01/16 06:10 CBC /W AUTO DIFF Routine CMP (COMPLETE METABOLIC) Routine 08/01/16 11:24 Simethicone [Mylicon] 80 mg PO Q6H PRN 08/01/16 17:49 Lactulose [Cephulac] 30 gm PO BID PRN 08/01/16 18:06 Lactulose [Cephulac] 20 gm PO BID PRN 08/01/16 Breakfast FULL LIQUID [DIET] 08/01/16 Dinner SOFT/BLAND [DIET] 08/02/16 05:26 CBC /W AUTO DIFF Routine CMP (COMPLETE METABOLIC) Routine LIPASE Routine 08/02/16 12:12 Potassium Chloride ER [Klor-Con] 40 meq PO X1 ONE 07/31/16 08:00 TEST URINE Routine 07/31/16 10:10 BMP (BASIC METABOLIC) Routine CBC /W AUTO DIFF Routine PT [PROTIME WITH INR] Routine 08/01/16 06:10 CBC /W AUTO DIFF Routine CMP (COMPLETE METABOLIC) Routine 08/02/16 05:26 CBC /W AUTO DIFF Routine CMP (COMPLETE METABOLIC) Routine LIPASE Routine 08/02/16 12:08 Nurse Notes by Juni Pool K 3.0 Informed MD Lou of Potassium 3.0 with order K 40 meq po X1. Also, informed MD of the patient wants to go home. Per MD. Lou, will discuss with MD Sanz then make decision. Initialized on 08/02/16 12:08 - END OF NOTE 08/02/16 10:15 Nurse Notes by Juni Pool Addendum to MD Sanz visit J/p is removed by Dr. Sanz and cover with dry dressing. Patient tolerated well, no bleeding noted, no pain or discomfort. Initialized on 08/02/16 10:15 - END OF NOTE 08/02/16 09:55 Nurse Notes by Juni Pool Dr, Dr. in to see patient. informed MD of K3.0 with no new order at this time. Initialized on 08/02/16 09:55 - END OF NOTE 08/02/16 08:31 Nurse Notes by Juni Pool Initial assessment Patient is awake, alert, oriented X4. No SOB, no distress on RA. No pain or discomfort at this time. Abdomen soft, round and non distended with bowel sounds present. Patient had 2 episodes of BM this morning. Surgical incision site of Laparoscopic cholecystectomy and umbilical hernia intact with dressing. No bleeding noted. DIMA draining serosanguineous fluid. Safe environment maintained. Initialized on 08/02/16 08:31 - END OF NOTE 08/02/16 07:02 Nurse Notes by JEANNE Davidson,[facility] End of shift Received report from lab- Potassium 3.0, paged Physician to notify, no answer at this time will endorse to day shift. Pt was able to sleep throughout the shift after pRN pain medications, tolerated well. Initialized on 08/02/16 07:02 - END OF NOTE 08/01/16 21:00 (created 08/02/16 07:04) Nurse Notes by JEANNE Davidson,[facility] Initial Notes Received pt in bed mother at bedside alert oriented x4 ambulatory BRP, able to make needs known. Complains of migraine pain, prn medication given tolerated well. Post sarina. lap hernia. Has had 1 BM at this time. Will continue to monitor and manage pain. Initialized on 08/02/16 07:04 - END OF NOTE 08/01/16 18:07 Nurse Notes by Sakina Vilchis Dr. called back with order to give lactulose 30ml oral solution po bid as needed for bowel management. Order noted and carried out. Patient made aware. will continue to monitor. Initialized on 08/01/16 18:07 - END OF NOTE 08/01/16 17:36 Nurse Notes by Sakina Vilchis NOTES Paged Dr. Lou today and notified regarding patient still unable to have bowel movement. waiting Md to call back. will continue to monitor. Initialized on 08/01/16 17:36 - END OF NOTE 08/01/16 16:31 Nurse Notes by Lemuel Villa patient dressing was changed today. cleasne with ns, and pat dry with gauze, gauze was put on covered with transparent dressing. phyllis are intact. no visible bleeding, approximated, no redness around surgical site. patient tolerated procedure well. will continue to monitor patient. Initialized on 08/01/16 16:31 - END OF NOTE 08/01/16 15:47 Nurse Notes by Sakina Vilchis Patient walked around the hallway today, able to ambulate as tolerated, alert and oriented, no chest pain, no difficulty in breathing, assisted in all her adl 's today, family at bedside. Iv heplock check intact and patent flushed with NS , administered the rocephin iv atb. no adverse reaction noted. will continue to monitor. Initialized on 08/01/16 15:47 - END OF NOTE 08/01/16 11:27 Nurse Notes by Sakina Vilchis MD called back and notified about patient complained of gas pain and ordered to start on simethicon 8omg po q6 hours prn. order noted and carried out. Patient made aware. Initialized on 08/01/16 11:27 - END OF NOTE 08/01/16 11:18 Nurse Notes by Sakina Vilchis Patient complained of gas at this time and pain, checked bowel sounds in right and lower quadrants hypoactive sounds, right upper quadrants has slightly active bowel sounds heard. paged Dr. Sanz today but no call back. will call primary doctor at this time. given zofran for nausea and morphine for pain. will continue to monitor. Initialized on 08/01/16 11:18 - END OF NOTE 08/01/16 09:59 Nurse Notes by Sakina Vilchis Seen and examined by Dr. Sanz, check the surgical site, per dressing dry, clean, no signs and symptoms of infection, will continue on antibiotic and pain management. Afebrile. MD ordered for the patient on full liquid diet, CBC and CMP in am, will continue to monitor. Initialized on 08/01/16 09:59 - END OF NOTE 08/01/16 09:57 Nurse Notes by Lemuel Villa patient pain was 4/10 around 0930 before ambulating patient. patient refuses pain meds before ambulation and will ask if pain level is higher before ambulating again. patient was able to ambulate with assist about 80 feet, patient had pain at this time and went back to bed. still no bowel movement but urinating. Initialized on 08/01/16 09:57 - END OF NOTE 08/01/16 07:53 Nurse Notes by Sakina Vilchis initial notes Received patient in bed, awake, alert, verbally responsive, able to follow commands, on monitoring for status post surgery repair on umbilical hernia. iv heplock on left forearm gauge 20, with d5 1/2 ns at 80cc/hr infusing well. encourage patient to ambulate often if possible. still on clear liquid diet at this time. will continue to monitor. Initialized on 08/01/16 07:53 - END OF NOTE 08/01/16 07:53 Nurse Notes by Jessica Estrada END OF SHIFT NOTES Patient is awake and alert, slept 5-6 hrs during the shift, not in any form of acute distress, new IV site was started at left hand, gauge 22 last night after change of shift report due to previous IVF was infiltrated. Ordered IVF is infusing well, no vomiting during the shift, per patient her nausea is related to morphine, gave Zofran once. Needs attended. Surgical dressing is clean, dry and intact. Encouraged to increase activity as tolerated, passing gas already no BM yet so far. Endorsed care to day nurse. Initialized on 08/01/16 07:53 - END OF NOTE 07/31/16 22:45 (created 08/01/16 02:04) Nurse Notes by Jessica Estrada CHANGED DOSE OF MORPHINE SULFATE [Per patient the ordered dose of morphine sulfate 3 mg is too strong for her, she can't tolerate it and making her too nauseous. Called PMD and informed him of patient's concern. RN got an order to lower the dose of Morphine to 2mg Q 3hrs prn for pain. Initialized on 08/01/16 02:04 - END OF NOTE 07/31/16 19:43 Nurse Notes by Lemuel Villa Closing Notes no acute changes, iv infiltrated, endorse care to pm rn. all meds given, no adr. dressing remains intact, minimal bleeding noted. dima drainage noted - 50cc/ hr. Initialized on 07/31/16 19:43 - END OF NOTE 07/31/16 16:10 Nurse Notes by Lemuel Villa patient returned from OR around 1400, vitals stable. patient awake, responsive, able to feel sensation on lower both extremities. dressings intact, 4 dressings found with dima drain, draining at 50cc, red drainage. no pain at this time. no nausea or vomiting, iv abx started. will monitor patient. Initialized on 07/31/16 16:10 - END OF NOTE 07/31/16 12:19 Nurse Notes by Sakina Vilchis NOTES At 12:15pm was taken to OR today, consent was obtained, Dr. Sanz explained risk and benefits to the patient, will obtained anesthesia consent, pre- operative checklist done. still on npo. Initialized on 07/31/16 12:19 - END OF NOTE 07/31/16 09:45 Nurse Notes by Lemuel Villa Notes patient agreed to have surgery, called and spoke to dr. sanz and recieved order for laparoscopic versus open cholecystectomy. will obtain consent. Initialized on 07/31/16 09:45 - END OF NOTE 07/31/16 08:23 Nurse Notes by Lemuel Villa Notes spoke with patient and agreed to do surgery for today. awaiting for dr. sanz to be on the floor to input order for surgery, after: will obtain consent from patient. this is explained to patient, and patient verbalizes understanding. Initialized on 07/31/16 08:23 - END OF NOTE 07/31/16 08:11 Nurse Notes by Sakina Vilchis INITIAL NOTES Patient alert oriented, no sob noted, follow commands, able to make needs known , no complaint of pain at this time, heplock on left forearm, with D5 1/2 ns at 80ml/hr, seen and examined by Dr. sanz with order to do pregancy test and do chest xray today, however dr. sanz explained the possible surgery for the patient, and resident still undecided at this time, resident still on npo at this time. Initialized on 07/31/16 08:11 - END OF NOTE 07/31/16 05:48 Nurse Notes by eTresa Lockwood c/o 11/13 abd pain, given prn pain med by Merle taylor RN, given morphine 2mg per pt request instead of 3mg as ordered, gets nauseated with morphine will request to change to dilaudid instead, pt remains npo, for hida scan and possible surg, ivf infusing well Initialized on 07/31/16 05:48 - END OF NOTE 07/31/16 01:12 Nurse Notes by Teresa Lockwood c/o nausea will give prn zofran Initialized on 07/31/16 01:12 - END OF NOTE 07/31/16 00:30 (created 07/31/16 01:02) Nurse Notes by Teresa Lockwood received pt from er admitted under Dr Lou for dx: abd pain, u/s done showing gallstones, pt is awake alert oriented ambulatory, has 4/10 pain at this time, was medicated with morphine in er that she states helped with her pain, ivpb infusing to lt forearm as ordered by er MD, will start on ivf as ordered, will be npo at this time for possible surg, vs wnl, afebrile, assessment done, call light in reach Initialized on 07/31/16 01:02 - END OF NOTE 07/30/16 23:30 Nurse Notes by Darrell Berry [id number]: patient admitted to [facility] unit under the care of Dr. Lou with dx of abdominal pain. patient taken to [facility] room 14-2 via wheelchair accompanied by this senior grant writer. SBAR report called and given to MS nurse Teresa. Initialized on 07/30/16 23:30 - END OF NOTE Reason for Hospitalization: abd pain. Hospital Course (Significant Findings/Progress/Treatments): Patient had presented to the hospial on 07/30/2016 with abdominal pain associated with nausea and vomiting. She was diagnosed acute cholecystitis. She underwent lap cholecystectomy on 07/31/2016. Postoperatively, she was diagnosed to have gangrenous cholecystitis. Today, her potassium is on lower side and it will be supplemented. DW DR LOU and agreed to dc patient home on levaquin and flagyl. F/u with Dr Sanz and Dr Lou. Patient Aware of Diagnosis & Prognosis?: Yes Complications: None. Allergies/Adverse Reactions: Allergies Allergy/AdvReac Type Severity Reaction Status Date / Time prochlorperazine AdvReac Verified 07/30/16 19:03 [From Compazine] Condition at Discharge: Improved Home Medications: Home Medication Medication Instructions Recorded Type NK [No Home Meds] 07/30/16 History Referrals: not on staff,PCP is [Primary Care Provider] - Damion Sanz [Active] - Rehab Potential: Fair Diet: Regular Copy Given to Patient & Patient's Legal Guyline Operator: Yes
--- NOTE | 2016-08-02 14:07 | General Progress Note ---
Subjective - Review of Systems Service Date: 08/02/16 Subjective: No new change. Objective - Results Result Diagrams: 08/02/16 05:26 08/02/16 05:26 Recent Labs: Laboratory Last Values WBC 5.9 Th/cmm (4.8-10.8) 08/02/16 05:26 RBC 3.92 Mil/cmm (3.80-5.10) 08/02/16 05:26 Hgb 12.1 gm/dL (11.7-15.5) 08/02/16 05:26 Hct 35.6 % (35.0-45.0) 08/02/16 05:26 MCV 90.8 fl (81-100) 08/02/16 05:26 MCH 30.8 pg (27.0-31.0) 08/02/16 05:26 MCHC Differential 33.9 pg (28.0-36.0) 08/02/16 05:26 RDW 12.2 % (11.5-20.0) 08/02/16 05:26 Plt Count 139 Th/cmm (150-400) L 08/02/16 05:26 MPV 8.5 fl 08/02/16 05:26 Neutrophils % 55.8 % (40.0-80.0) 08/02/16 05:26 Lymphocytes % 33.8 % (20.0-50.0) 08/02/16 05:26 Monocytes % 7.9 % (2.0-10.0) 08/02/16 05:26 Eosinophils % 2.3 % (0.0-5.0) 08/02/16 05:26 Basophils % 0.2 % (0.0-2.0) 08/02/16 05:26 PT 10.1 SECONDS (9.5-11.5) 07/31/16 10:10 INR 0.97 (0.5-1.4) 07/31/16 10:10 Sodium 139 mEq/L (136-145) 08/02/16 05:26 Potassium 3.0 mEq/L (3.5-5.1) L 08/02/16 05:26 Chloride 109 mEq/L (98-107) H 08/02/16 05:26 Carbon Dioxide 26.0 mEq/L (21.0-31.0) 08/02/16 05:26 Anion Gap 7.0 (7.0-16.0) 08/02/16 05:26 BUN 5 mg/dL (7-25) L 08/02/16 05:26 Creatinine 0.6 mg/dL (0.6-1.2) 08/02/16 05:26 Est GFR ( Amer) > 60.0 ml/min (>90) 08/02/16 05:26 Est GFR (Non-Af Amer) > 60.0 ml/min 08/02/16 05:26 BUN/Creatinine Ratio 8.3 08/02/16 05:26 Glucose 112 mg/dL (70-105) H 08/02/16 05:26 Whole Bld Lactic Acid 1.20 mmol/L (0.60-1.99) 07/30/16 20:09 Calcium 9.0 mg/dL (8.6-10.3) 08/02/16 05:26 Total Bilirubin 0.4 mg/dL (0.3-1.0) 08/02/16 05:26 AST 67 U/L (13-39) H 08/02/16 05:26 ALT 221 U/L (7-52) H 08/02/16 05:26 Alkaline Phosphatase 134 U/L (34-104) H 08/02/16 05:26 Total Protein 6.3 gm/dL (6.0-8.3) 08/02/16 05:26 Albumin 3.5 gm/dL (3.7-5.3) L 08/02/16 05:26 Globulin 2.8 gm/dL 08/02/16 05:26 Albumin/Globulin Ratio 1.3 (1.0-1.8) 08/02/16 05:26 Lipase 39 U/L (11-82) 08/02/16 05:26 Urine Source CLEAN C 07/30/16 21:10 Urine Color YELLOW 07/30/16 21:10 Urine Clarity CLEAR (CLEAR) 07/30/16 21:10 Urine pH 6.5 07/30/16 21:10 Ur Specific [place] 1.010 (1.005-1.030) 07/30/16 21:10 Urine Protein NEGATIVE mg/dL (NEGATIVE) 07/30/16 21:10 Urine Glucose (UA) NEGATIVE mg/dL (NEGATIVE) 04/26/17 21:10 Urine Ketones NEGATIVE mg/dL (NEGATIVE) 07/30/16 21:10 Urine Blood NEGATIVE (NEGATIVE) 07/30/16 21:10 Urine Nitrate NEGATIVE (NEGATIVE) 07/30/16 21:10 Urine Bilirubin NEGATIVE (NEGATIVE) 07/30/16 21:10 Urine Urobilinogen 0.2 E.U./dL (0.2 - 1.0) 07/30/16 21:10 Ur Leukocyte Esterase NEGATIVE (NEGATIVE) 07/30/16 21:10 Urine RBC NONE SEEN /hpf (0-5) 07/30/16 21:10 Urine WBC NONE SEEN /hpf (0-5) 07/30/16 21:10 Ur Epithelial Cells NONE SEEN /lpf (FEW) 07/30/16 21:10 Urine Bacteria NONE SEEN /hpf (NONE SEEN) 07/30/16 21:10 Urine Test NEGATIVE 07/31/16 08:00 - Physical Exam Vitals and I&O: Vital Signs Temp 99.0 F 08/01/16 23:00 Pulse 75 08/01/16 23:00 Resp 19 08/02/16 08:00 BP 121/77 08/01/16 23:00 Pulse Ox 98 08/01/16 15:33 Intake & Output 08/01/16 08/02/16 08/02/16 18:59 06:59 18:59 Intake Total 300 1100 Output Total 115 Balance 185 1100 Intake: Intake, IV Amount 200 1100 D5-0.45NS 1,000 ml @ 80 1000 mls/hr IV .[id number] [facility] Rx #:[id number] cefTRIAXone 2 gm In 100 Dextrose 5% 100 ml @ 100 mls/hr IV Q24H [facility] Rx#: [id number] metroNIDAZOLE 500mg/NS 100 100 100mL 500 mg In Premix Fluid 1 bag @ 100 mls/hr IV Q8H [facility] Rx#:[id number] Oral 100 Output: Other 115 Other: # Voids 2 # Bowel Movements 0 Stool Characteristics Soft Active Medications: Current Medications Acetaminophen/Butalbital/Caffeine (Fioricet) 1 tab PO Q4HR PRN PRN Reason: Migraines Stop: 09/29/16 17:55 Last Admin: 08/02/16 02:19 Dose: 1 tab Dextrose/Sodium Chloride (D5-0.45ns) 1,000 mls @ 80 mls/hr IV .[id number] [facility] Stop: 09/28/16 22:15 Last Admin: 08/02/16 09:13 Dose: 80 mls/hr Metronidazole 500 mg/ (Miscellaneous) 100 mls @ 100 mls/hr IV Q8H [facility] Stop: 09/29/16 13:44 Last Admin: 08/02/16 12:48 Dose: 100 mls/hr Ceftriaxone Sodium 2 gm/ (Dextrose) 100 mls @ 100 mls/hr IV Q24H [facility] Stop: 09/29/16 13:44 Last Admin: 08/02/16 13:19 Dose: 100 mls/hr Potassium Chloride (Potassium Chloride) 20 meq in 100 mls @ 50 mls/hr IV UD ONE Stop: 08/02/16 16:59 Lactulose (Cephulac) 20 gm PO BID PRN PRN Reason: Constipation Stop: 09/30/16 17:59 Last Admin: 08/01/16 18:28 Dose: 20 gm Morphine Sulfate (Morphine) 2 mg IVP Q3HR PRN PRN Reason: Pain (Moderate) Stop: 09/29/16 22:45 Last Admin: 08/01/16 11:09 Dose: 2 mg Ondansetron HCl (Zofran) 4 mg IV Q6H PRN PRN Reason: Nausea Stop: 09/28/16 22:14 Last Admin: 08/01/16 11:09 Dose: 4 mg Simethicone (Mylicon) 80 mg PO Q6H PRN PRN Reason: Gas Stop: 09/30/16 11:23 Last Admin: 08/01/16 12:06 Dose: 80 mg General: Alert, Oriented x3, Cooperative HEENT: Atraumatic, PERRLA, EOMI, Mucous membr. moist/pink Neck: Supple Cardiovascular: Regular rate, Normal S1 Lungs: Clear to auscultation, Normal air movement Abdomen: Bowel sounds, Soft, Other (lap surgical wounds ok.) Extremities: no Clubbing, no Cyanosis, no Edema Neurological: Normal gait, Normal speech, Strength at 5/5 X4 ext Skin: no Rash, no Breakdown Psych/Mental Status: Mental status NL - Procedures Procedures: Procedures Procedure Code Date LAPAROSCOPIC CHOLECYSTECTOMY 41358 07/30/16 REPAIR ABDOMINAL WALL, OPEN APPROACH [id number] 07/30/16 RESECTION OF GALLBLADDER, PERCUTANEOUS ENDOSCOPIC APPROACH [id number] 07/30/16 RPR VENTRAL CORBIN INIT REDUC 10305 07/30/16 Assessment/Plan - Assessment Assessment: Acute gangrenous cholecystitis. s/p lap melvin. Hypokalemia. - Plan Plan: will dc patient on levaquin and flagyl after K supplementation. F/u with Dr Ramirez in one week. F/u her PCP and Dr Hernandez in one week.
[2016-08-02] MEDS ORDERED: KCL 20mEq/100mL Premix 20 MEQ/100 ML PIGGYBACK IV ONE (15:00)
--- NOTE | 2016-08-04 12:46 | Pathology Report ---
[id number] Collection date: 07/31/2016 Surgeon: Dr. Margot Ramirez Specimen Description: Gallbladder. Gross Description: Received in formalin is a 7.5 x 3.8 x 2.8 cm oval gallbladder with a dusky penn outer surface. Opening the gallbladder reveals multiple yellow-green gallstones measuring up to 1.0 cm with diffuse ulceration of the mucosa appreciated. The gallbladder wall ranges from 0.2 to 0.4 cm in thickness. Director Speech And Hearing sections are submitted in one cassette. Gross Pathologic Diagnosis: Cholelithiasis, gallbladder. Microscopic Description: The histologic sections show gallbladder wall and mucosa with extensive ulceration and necrosis present. Areas of acute suppurative inflammation are seen consisting of collections of neutrophils with a very necrotic background. Diagnosis: Acute cholecystitis with extensive necrosis, consistent with gangrenous cholecystitis (gallbladder). [facility]# [id number] MTDD
--- NOTE | 2016-08-22 21:32 | Discharge Summary ---
DATE OF DISCHARGE: 08/02/2016 FINAL DIAGNOSES: 1. Acute gangrenous cholecystitis, status post laparoscopic cholecystectomy, better. 2. Umbilical hernia, unobstructed. 3. Chronic migraine headaches, stable. HOSPITAL COURSE: This is a 46-year-old female admitted for evaluation of severe abdominal pain. Abdominal ultrasound finding was cholelithiasis. The patient was evaluated by Dr. Ramirez, surgeon, and diagnosed with the acute calculous cholecystitis and recommended laparoscopic cholecystectomy. The patient underwent laparoscopic cholecystectomy. POSTOPERATIVE DIAGNOSES: Gangrenous cholecystitis and also underwent repair of umbilical hernia. The patient was also seen by ID. The patient was given appropriate IV antibiotics. Similar treatment was given for IV pain meds as well as anti-nausea medications. Initially kept n.p.o. IV fluid was given. Subsequently, postoperatively started on diet. Diet was advanced. The patient tolerated well. The patient was cleared by ID and General Surgery for discharge home with oral antibiotic and outpatient followup with surgeon in 1 week. Overall hospital stay was uneventful. DISCHARGE CONDITION: Stable. DISCHARGE MEDICATIONS: Please see medication reconciliation list. DISCHARGE INSTRUCTION: The patient was instructed to follow with the primary M.D. and General Surgery in 1 week. JOB# [id number] YOVANA
== END 2016-08-02 17:15 | disposition home or self-care (01) | DRG 263 ==
LOC: ER 18:48 → MSI 22:20
PROVIDERS: ADMIT Family Medicine; ATTEND Family Medicine
PROC: 0FT44ZZ Resection of Gallbladder, Percutaneous Endoscopic Approach (ICD-10-PCS; principal; 2016-07-31)
PROC: 0WQF0ZZ Repair Abdominal Wall, Open Approach (ICD-10-PCS; 2016-07-31)
DX: K80.00 Calculus of gallbladder with acute cholecystitis without obstruction (principal); E87.6 Hypokalemia; K42.9 Umbilical hernia without obstruction or gangrene; G43.909 Migraine, unspecified, not intractable, without status migrainosus; E66.9 Obesity, unspecified; Z88.8 Allergy status to other drugs, medicaments and biological substances; Z68.29 Body mass index [BMI] 29.0-29.9, adult
CPT/HCPCS: 36415-UA; 71010-TC; 76700-TC; 80048-TC; 80053-TC; 81001-TC; 81025-TC; 83605; 83690-TC; 85025-TC; 85610-TC; 87070-90; 87075-90; 87205-90; 88304-TC; 90799; 93005; 96372; 96374; 96375; J0690; J0696; J2250; J2270; J2405; J2543; J2704; J2710; J3480; J7030; X6024; X6026; X6258; Z7610

== ENCOUNTER 2016-08-07 17:23 | Emergency (ER) | payer MEDICAID ==
--- NOTE | 2016-08-07 18:00 | ED Physician Chart ---
Chief Complaint/HPI - Patient Information Date Seen:: 08/07/16 Time Seen:: 17:45 Chief Complaint:: incision line dehiscence History of Present Illness:: Patient had a laparoscopic cholecystectomy at this hospital one week ago. She had the phyllis removed at 10:[address] Ramirez's office. Wound dehiscence along the umbilical incision line occurred at 1500. Patient denies any abdominal pain or vomiting. The dehiscence bled slightly. Patient has 4 days remaining on her Flagyl prescription. Allergies:: Allergies Allergy/AdvReac Type Severity Reaction Status Date / Time prochlorperazine AdvReac Verified 08/07/16 17:34 [From Compazine] Vitals:: Vital Signs - 8 hr 08/07/16 17:23 Temp 97.0 F HR 83 RR 16 BP 130/86 O2 Sat % 98 Historian:: Patient Review:: Nurse's Note Reviewed Review of Systems - Review of Systems General/Constitutional: No fever, No chills Skin: Skin lesions Head: No headache Eyes: No loss of vision ENT: No earache Neck: No neck pain Cardio Vascular: No chest pain, No palpitations Pulmonary: No SOB, No cough, No wheezing GI: No nausea, No vomiting G/U: No dysuria Musculoskeletal: No bone or joint pain, No back pain Endocrine: No polyuria Psychiatric: No prior psych history Hematopoietic: No bruising Allergic/Immuno: No urticaria Neurological: No syncope Past Medical History - Past Medical History Past Medical History: Other (migraine headaches) Family History: Heart disease, Other (atrial fibrillation) Social History: Non Smoker, No Alcohol Surgical History: other (laparoscopic cholecystectomy; facial surgery for migraine headaches) Psychiatricy History: None Medication: Reviewed Family Medical History - Family Member Father Ethnicity: Non- Living Status: Still Living Hx Family Cancer: No Hx Family Coronary Artery Disease: No Hx Family Congestive Heart Failure: No Hx Family Hypertension: No Hx Family Stroke: No Hx Family Diabetes: No Hx Family Seizures: No Hx Family Dementia: No Hx Family AIDS: No Hx Family HIV: No Hx Family COPD: No Hx Family Hepatitis: No Hx Family Psychiatric Problems: No Hx Family Tuberculosis: No Grandmother Other Medical History: heart disease Physical Exam - Physical Examination General/Constitutional: Well-developed, well-nourished, Alert, No distress Head: Atraumatic Eyes: Lids, conjuctiva normal, PERRL Skin: Nl inspection, No rash, No skin lesions, No ecchymosis ENMT: External ears, nose nl, TM canals nl, Nasal exam nl, Lips, teeth, gums nl Neck: No nuchal rigidity Respiratory: Nl effort/Exclusion, Clear to Auscultation, No Wheeze/Rhonchi/Rales Cardio Vascular: RRR GI: No tenderness/rebounding/guarding, No organomegaly Other GI comments:: 1 cm umbilical incision line dehiscence; no active bleeding : No CVA tenderness Extremities: Normal digits & nails Neuro/Psych: Alert/oriented, No focal deficits Misc: Normal back Assessment - Assessment General Assessment: Patient asked to finish the Flagyl as prescribed ED Septic Shock - . Is Septic Shock (SBP<90, OR Lactate>4 mmol\L) present?: No - <6hrs of presentation: Vital Signs: Vital Signs - 8 hr 08/07/16 17:23 Temp 97.0 F HR 83 RR 16 BP 130/86 O2 Sat % 98 Reassessment (Disposition) - Reassessment Reassessment Condition:: Unchanged - Diagnosis Diagnosis:: Incision line dehiscence - Aftercare/Follow up Instructions Aftercare/Follow-Up Instructions:: Refer to Discharge Instructions Medication Prescribed:: Keflex 500 mg 4 times a day for 10 days. - Patient Disposition Discharge/Transfer:: Home Condition at Disposition:: Stable, Unchanged
== END 2016-08-07 18:30 | disposition short-term general hospital (02) ==
LOC: ER 17:23
DX: T81.30XA Disruption of wound, unspecified, initial encounter (principal); G43.909 Migraine, unspecified, not intractable, without status migrainosus; Z88.8 Allergy status to other drugs, medicaments and biological substances; Z90.49 Acquired absence of other specified parts of digestive tract
CPT/HCPCS: Z7502; Z7610